=== PATIENT | male | born 1980 | race Caucasian/White ===

== ENCOUNTER 2023-10-30 07:09 | Emergency (ER) | payer SELFPAY ==
[~2023-10-30] VITALS: Ht 170.2 cm; Wt 99.8 kg
[2023-10-30 07:29] VITALS: BP 146/86; PULSE 80; RESP 18; TEMP 98.3; O2SAT 99
[2023-10-30] MEDS: KETOROLAC 60 MG/2 ML VIAL IM ONE (08:01)
[2023-10-30] MEDS ORDERED: IBUP-2213 PO (08:16)
[2023-10-30 08:27] VITALS: BP 114/62; PULSE 87; O2SAT 95
== END 2023-10-30 08:27 | disposition home or self-care (01) ==
LOC: MED 07:09
DX: S60.221A Contusion of right hand, initial encounter (principal); W11.XXXA Fall on and from ladder, initial encounter; Y93.89 Activity, other specified; Y92.89 Other specified places as the place of occurrence of the external cause; Y99.8 Other external cause status
CPT/HCPCS: 73130; 96372; 99283; J1885